=== PATIENT | female | born 1980 | race Caucasian/White ===

== ENCOUNTER 2016-10-30 23:32 | Emergency (ER) | payer OTHER ==
[2016-10-30 23:48] VITALS: BP 125/76
--- NOTE | 2016-10-31 00:31 | EDM.PDOC ---
ED HPI GENERAL MEDICAL PROBLEM - General Chief Complaint: General Stated Complaint: PAIN IN LOWER ABD AND BACK, Time Seen by Provider: 10/30/16 23:54 Source of Information: Reports: Patient History Limitations: Reports: No Limitations - History of Present Illness INITIAL COMMENTS - FREE TEXT/NARRATIVE: Patient comes in for evaluation of intermittent lower abdominal and low back pain. Bilateral. She has not been timing frequency. Episodes last around 30 seconds. Seems worse when she is active. Patient is 37 weeks with EDC November 14. Has been getting stress tested three times a week for last several weeks. She questions if she may have felt/noted some fluid leaking into underwear earlier but denies obvious santana of fluid that would suggest water breaking. No bleeding reported. Denies fevers/illness/HEENT/RESP/CV/GI/ complaints. No discomfort arms/legs. First . Similar issues several weeks ago that resolved when she laid down and rested. Lower Abdominal Pain Score (Numeric/FACES): 5 - Related Data Allergies Allergy/AdvReac Type Severity Reaction Status Date / Time No Known Allergies Allergy Verified 10/30/16 23:45 Home Meds: Home Meds Aspirin 81 mg PO DAILY 10/30/16 [History] Levothyroxine Sodium [Synthroid] 150 mcg PO DAILY 10/30/16 [History] Vits #90/Iron Fum/FA [ Formula] 1 tab PO DAILY 10/30/16 [ History] Past Medical History Endocrine/Metabolic History: Reports: Hypothyroidism, Obesity/BMI 30+ Social & Family History - Tobacco Use Smoking Status *Q: Never Smoker Second Hand Smoke Exposure: No - Recreational Drug Use Recreational Drug Use: No ED ROS GENERAL - Review of Systems Review Of Systems: ROS reveals no pertinent complaints other than HPI. ED EXAM, GENERAL - Physical Exam Exam: See Below Exam Limited By: No Limitations General Appearance: Alert, Mild Distress (when experiencing cramping sensation. ), Obese Eye Exam: Bilateral Eye: EOMI Throat/Mouth: Normal Voice, No Airway Compromise Head: Atraumatic, Normocephalic Neck: Supple Respiratory/Chest: No Respiratory Distress, Lungs Clear, Normal Breath Sounds, No Accessory Muscle Use Cardiovascular: Regular Rate, Rhythm, No Murmur GI/Abdominal: Non-Tender, Other (Gravid) (Female) Exam: Normal External Exam, Heart Tones (170s). No: Cervical Dilatation (unable to palpate cervix, did not feel 's head/crown), Cervical Discharge, Cervical Fluid Rectal (Female) Exam: Deferred Back Exam: No: CVA Tenderness (L), CVA Tenderness (R) Extremities: Normal Capillary Refill Neurological: Alert, Oriented, Normal Cognition Psychiatric: Anxious Skin Exam: Warm, Dry, Intact, Normal Color Course - Vital Signs Last Recorded V/S: Last Vital Signs Temp 36.8 C 10/30/16 23:46 Pulse 104 H 10/30/16 23:46 Resp 16 10/30/16 23:46 BP 125/76 10/30/16 23:46 Pulse Ox 95 10/30/16 23:46 - Orders/Labs/Meds Orders: Active Orders 24 hr Category Date Time Status CULTURE URINE [RM] Routine Lab 10/31/16 00:03 Ordered Labs: Laboratory Tests 10/30/16 Range/Units 23:45 Specimen Type Urinblad Urine Color Yellow Urine Appearance Slightly cloudy Urine pH 5.5 (5.0-9.0) Ur Specific [place] 1.025 (1.005-1.030) Urine Protein 30 H (NEGATIVE) mg/dL Urine Glucose (UA) 100 H (NEGATIVE) mg/dL Urine Ketones Negative (NEGATIVE) mg/dL Urine Occult Blood Negative (NEGATIVE) Urine Nitrite Negative (NEGATIVE) Urine Bilirubin Negative (NEGATIVE) Urine Urobilinogen 0.2 (0.2-1.0) E.U./dL Ur Leukocyte Esterase Negative (NEGATIVE) Urine RBC 0-5 /HPF Urine WBC 5-10 H /HPF Ur Epithelial Cells Moderate H /LPF Urine Bacteria Moderate H (NONE TO FEW) /HPF Urine Yeast Few H (NEGATIVE) /HPF - Re-Assessments/Exams Free Text/Narrative Re-Assessment/Exam: 10/31/16 00:[address] Tian contact center rep MD at [facility] [employer]. Recommended that patient drive to [facility] to be evaluated by their OB Triage and placed on monitor. Patient noted to have second episode of contraction 13 minutes after first. No head/cord/cervix/engagement noted during exam. OK to go by private vehicle. will be driving patient. Departure - Departure Time of Disposition: 00:35 Disposition: DC/Tfer to Acute Hospital 02 Condition: good Clinical Impression: Threatened labor - Discharge Information Forms: ED Department Discharge Additional Instructions: Drive directly to [facility] and present to OB Triage for evaluation. If anything suddenly worsens while en route you can call EMS [id number] for assistance. - My Orders Last 24 Hours: My Active Orders 10/31/16 00:03 CULTURE URINE [RM] Routine - Assessment/Plan Last 24 Hours: My Active Orders 10/31/16 00:03 CULTURE URINE [RM] Routine
== END 2016-10-31 00:50 ==
LOC: LL.ED 23:32
DX: O80 Encounter for full-term uncomplicated delivery (principal); E03.9 Hypothyroidism, unspecified; E66.9 Obesity, unspecified; Z3A.37 37 weeks gestation of pregnancy; Z79.82 Long term (current) use of aspirin; Z79.899 Other long term (current) drug therapy
CPT/HCPCS: 81001; 87086; 99284